=== PATIENT | female | born 1970 | race Caucasian/White ===

== ENCOUNTER 2017-07-27 11:12 | Outpatient (CLI) | payer OTHER | END 2017-07-27 15:54 | disposition home or self-care (01) | LOC: SONOGRAMA 11:12 | DX: E04.0 Nontoxic diffuse goiter (principal); E06.9 Thyroiditis, unspecified ==

== ENCOUNTER 2024-12-14 07:05 | Outpatient (CLI) | payer OTHER | END 2024-12-14 07:06 | disposition home or self-care (01) | LOC: NUCLEAR 07:05 | PROVIDERS: ATTEND Internal Medicine | DX: I20.9 Angina pectoris, unspecified (principal) | CPT/HCPCS: 78452; 93017; A9500 ==

== ENCOUNTER 2025-01-18 10:42 | Outpatient (CLI) | payer OTHER | END 2025-01-18 10:44 | disposition home or self-care (01) | LOC: SONOGRAMA 10:42 | DX: M65.4 Radial styloid tenosynovitis [de Quervain] (principal) ==

== ENCOUNTER 2025-01-21 13:08 | Outpatient (CLI) | payer OTHER | END 2025-01-21 13:11 | disposition home or self-care (01) | LOC: MRI 13:08 | DX: M50.30 Other cervical disc degeneration, unspecified cervical region (principal) | CPT/HCPCS: 72141 ==